=== PATIENT | female | born 1950 | race Caucasian/White ===

== ENCOUNTER 2017-05-13 11:40 | Day surgery (SDC) | payer OTHER ==
[2017-05-07 16:57] LABS: ANION GAP 11 mEq/L (8-16); CALCIUM 9.1 mg/dL (8.5-10.4); CARBON DIOXIDE 25 mEq/l (22-31); CHLORIDE 96 mEq/L (97-110); CREATININE 0.5 mg/dL (0.6-1.0); GLOMERULAR FILTRATION RATE > 60; GLUCOSE 427 mg/dL (70-100); POTASSIUM 3.8 mEq/L (3.5-5.2); SODIUM 132 mEq/L (134-144)
[2017-05-13] MEDS ORDERED: LIDOCAINE 1% 2 ML INJ ID PRN (12:44)
[2017-05-13] MEDS ORDERED: LR 1,000 ML IV ONE (12:44)
--- NOTE | 2017-05-13 13:08 | PDGENHP ---
History & Physical Chief Complaint: Personal history of colon polyps History of Present Illness: Surveillance colonoscopy Pertinent Past, Social, Family History: No ETOH or Tobacco Relevant Physical Exam: NAD. CTA B/L. RRR without m/r/g. ABD soft. NABS. NT/ ND Cardiorespiratory Assessment: ASA II. Colonoscopy with MAC
--- NOTE | 2017-05-13 13:11 | PDANEPAE ---
ANE History of Present Illness c scope ANE Past Medical History - Cardiovascular History Hx Hypertension: Yes Hx Arrhythmias: No Hx Chest Pain: No Hx Coronary Artery / Peripheral Vascular Disease: No Hx CHF / Valvular Disease: No Hx Palpitations: No - Pulmonary History Hx COPD: No Hx Asthma/Reactive Airway Disease: No Hx Recent Upper Respiratory Infection: No Hx Oxygen in Use at Home: No Hx Sleep Apnea: Yes Sleep Apnea Screening Result - Last Documented: Positive Pulmonary History Comment: Hx sleep apnea uses Cpap - Neurologic History Hx Cerebrovascular Accident: No Hx Seizures: No Hx Dementia: No - Endocrine History Hx Diabetes: Yes Endocrine History Comment: diabetes type 2 - Renal History Hx Renal Disorders: No - Liver History Hx Hepatic Disorders: No - Neurological & Psychiatric Hx Hx Neurological and Psychiatric Disorders: Yes Neurological / Psychiatric History Comment: depression - Cancer History Hx Cancer: No - Congenital Disorder History Hx Congenital Disorders: No - GI History Hx Gastrointestinal Disorders: No - Other Health History Other Health History: osteo-arthritis, uses crutches - Chronic Pain History Chronic Pain: No - Surgical History Prior Surgeries: hernia repair 2013. Cholecystectomy 2011 ANE Review of Systems Review of systems is: negative Review of Systems: - Exercise capacity Exercise capacity: <4 METS METS (RN): 2 METS ANE Patient History - Allergies Allergies/Adverse Reactions: bupropion [From Wellbutrin] Allergy (Verified 04/16/17 11:41) Rash Sulfa (Sulfonamide Antibiotics) Allergy (Verified 04/16/17 11:42) Unknown - Home Medications Home medications: home medication list seen and reviewed Home Medications: Losartan Potassium HS 04/16/17 [Last Taken 05/12/17] Metformin 1000 mg 1,000 HS 04/16/17 [Last Taken 05/12/17] Prozac 20 MG (*) 20 04/16/17 [Last Taken 05/12/17] SIMVASTATIN HS 04/16/17 [Last Taken 05/12/17] Synthroid HS 04/16/17 [Last Taken 05/12/17] Tradjenta 04/16/17 [Last Taken 05/12/17] - NPO status NPO Status: no food or drink >8 hours NPO Since - Liquids (Date): 05/12/17 NPO Since - Liquids (Time): 21:00 NPO Since - Solids (Date): 05/12/17 NPO Since - Solids (Time): 09:00 - Anes Hx Anes Hx: no prior problems - Smoking Hx Smoking Status: Never smoked - Alcohol Use Alcohol Use: Occasionally - Family Anes Hx Family Hx Anesthesia Complications: none ANE Labs/Vital Signs - Labs Result Diagrams: 05/07/17 15:59 - Vital Signs Blood Pressure: 157/79 Heart Rate: 74 Respiratory Rate: 16 O2 Sat (%): 97 Height: 152.4 cm Weight: 138.346 kg ANE Physical Exam - Airway Neck exam: FROM Mallampati Score: Class 3 Mouth exam: normal dental/mouth exam - Pulmonary Pulmonary: no respiratory distress - Cardiovascular Cardiovascular: regular rate and rhythym - ASA Status ASA Status: III ANE Anesthesia Plan Anesthesia Plan: GA with mask
[2017-05-13] MEDS ORDERED: PROPOFOL/EMULSION 500 MG/50 ML BOTTLE IV ONE (13:16)
[2017-05-13] MEDS ORDERED: LIDOCAINE 2% 100 MG/5 ML SYR ONE (13:16)
[2017-05-13] MEDS ORDERED: BOTULINUM TOXIN TYPE A 100 UNIT VIAL IM ONE (13:28)
[2017-05-13] MEDS ORDERED: ONDANSETRON 4 MG/2 ML VIAL IVP PRN (13:34)
[2017-05-13] MEDS ORDERED: ALBUTEROL 3 ML DEYVIAL IH PRN (13:34)
[2017-05-13] MEDS ORDERED: ACETAMINOPHEN 500 MG TAB PO PRN (13:34)
[2017-05-13] MEDS ORDERED: NALOXONE HCL 0.4 MG/ML INJ IVP PRN (13:34)
--- NOTE | 2017-05-13 13:48 | GIREPORT ---
[facility] Surgical Services - Endoscopy Department Patient Name: Kristen Lambert Procedure Date: 05/13/2017 1:04 PM Patient Type: Outpatient Attending MD/ ER Physician: Kev Eaton MD Procedure: Colonoscopy Indications: High risk colon cancer surveillance: Personal history of adenoma with villous component Providers: Kev Eaton MD Medicines: Propofol per Anesthesia Complications: No immediate complications. Description of Procedure: After obtaining informed consent, the scope was passed under direct vis ion. Throughout the procedure, the patient's blood pressure, pulse, and oxyg en saturations were monitored continuously. The Colonoscope with irrigatio n channel was introduced through the anus and advanced to the cecum, identified by appendiceal orifice and ileocecal valve. The colonoscopy was performed without difficulty. The patient tolerated the procedure well. The quality of the bowel preparation was good. The ileocecal valve, appendi ceal orifice, and rectum were photographed. Findings: The digital rectal exam findings include decreased sphincter tone and non-thrombosed internal hemorrhoids. Pertinent negatives include no pal pable rectal lesions. A 4 mm polyp was found in the ascending colon. The polyp was sessile. T he polyp was removed with a cold biopsy forceps. Resection and retrieval w ere complete. Estimated Blood Loss: Estimated blood loss: none. Post Op Diagnosis: - Decreased sphincter tone and non-thrombosed internal hemorrhoids foun d on digital rectal exam. - One 4 mm polyp in the ascending colon, removed with a cold biopsy for ceps. Resected and retrieved. Recommendation: - Await pathology results. - Repeat colonoscopy in 5 years for surveillance. - Resume previous diet. - Continue present medications. - Patient has a contact number available for emergencies. The signs and symptoms of potential delayed complications were discussed with the pat ient. Return to normal activities tomorrow. Written discharge instructions we re provided to the patient. - Thank you for allowing me to be involved in the care of your patient. Attending Participation: I personally performed the entire procedure without the assistance of a fellow, resident or surg ical chef's assistant. Kev Eaton MD Kev Eaton MD 05/13/2017 1:47:55 PM This report has been signed electronicallyDavid MD Uma Number of Addenda: 0 Note Initiated On: 05/13/2017 1:04 PM Total Procedure Duration Time 0 hours 17 minutes 44 seconds [email or web address]
--- NOTE | 2017-05-13 14:08 | POSTANESTH ---
Post Anesthetic Evaluation Cardiovascular Status: Normal, Stable Respiratory Status: Normal, Stable Level of Consciousness/Mental Status: Can Participate in Eval Pain Control: Adequate, Prn Tx Ordered Nausea/Vomiting Control: Adequate, Prn Tx Ordered Complications Possibly Related to Anesthesia: None Noted
[2017-05-13 14:22] VITALS: RESP 16
[2017-05-13 14:27] VITALS: PULSE 63; TEMP 97.7
[2017-05-13 15:04] VITALS: BP 129/60; O2SAT 92
== END 2017-05-13 15:12 | disposition home or self-care (01) ==
LOC: FSGY 11:40
PROVIDERS: ATTEND Internal Medicine Gastroenterology
PROC: 0DBK8ZX Excision of Ascending Colon, Via Natural or Artificial Opening Endoscopic, Diagnostic (ICD-10-PCS; principal; 2017-05-13 13:00)
DX: Z12.11 Encounter for screening for malignant neoplasm of colon (principal); D12.2 Benign neoplasm of ascending colon; K64.9 Unspecified hemorrhoids; G47.33 Obstructive sleep apnea (adult) (pediatric); E11.9 Type 2 diabetes mellitus without complications; Z86.010 Personal history of colon polyps
CPT/HCPCS: J0585; J2001; J2704